=== PATIENT | female | born 1950 | race Caucasian/White ===

== ENCOUNTER 2017-04-19 08:31 | Day surgery (SDC) | payer BC ==
[2017-04-19] MEDS ORDERED: LIDOCAINE 1% 300 MG/30 ML SDV SC ONE (08:35)
--- NOTE | 2017-04-19 09:58 | PDHPUP ---
History & Physical Update H&P update statement: This history and physical update is based on an assessment of the patient which was completed after admission or registration (within 24 hours), but prior to the surgery/procedure. H&P update: H&P reviewed & patient examined, no change in patient's condition since H&P completed
--- NOTE | 2017-04-19 19:59 | CPIP ---
[f rep st] INVASIVE CARDIAC PROCEDURE DATE OF PROCEDURE: 04/19/2017 INDICATIONS: The patient is 67 years old. A LINQ had previously been implanted given her history of palpitations. Subsequently, she was found to have atrial fibrillation, which is being medically man aged now. She is referred for referred for removal of a [employer] LINQ. PROCEDURE: Removal of [employer] LINQ. TECHNIQUE: Following informed consent and in the fasting state, the patient was brought to the CVC. No sedation was used. Local anesthetic was infiltrated into the skin overlying the previously place d LINQ. Using a #15 blade, a 1 cm incision was made. Using blunt dissection, the LINQ was identified. The L INQ was then removed from the pocket. The pocket was irrigated and closed with 3 guillaume. COMPLICATIONS: None. DISPOSITION: The patient will be discharged home today. She will follow up next week for removal of the guillaume. /[id number]/MODL
== END 2017-04-19 10:00 | disposition home or self-care (01) ==
LOC: FCATH 08:31
PROVIDERS: ATTEND Internal Medicine Cardiovascular Disease
PROC: 0JPT02Z Removal of Monitoring Device from Trunk Subcutaneous Tissue and Fascia, Open Approach (ICD-10-PCS; principal; 2017-04-19)
DX: I48.0 Paroxysmal atrial fibrillation (principal); E78.5 Hyperlipidemia, unspecified

== ENCOUNTER 2018-05-02 14:11 | Emergency (ER) | payer BC ==
--- NOTE | 2018-05-02 15:31 | EDPHY ---
H & P Stated Complaint: Mechanical fall, injury to R elbow Time Seen by Provider: 05/02/18 15:22 HPI/ROS: CHIEF COMPLAINT: Right elbow pain HISTORY OF PRESENT ILLNESS: 68-year-old female presents with right elbow pain. She slipped and fell on icy pavement just prior to arrival. She landed on her right elbow. Immediate onset of moderate right elbow pain. The pain is mild to moderate and persistent. No other injuries. She did not hit her head. No headache or neck pain. ROS: No numbness, weakness, bleeding, syncopal episode, other injury. - Personal History Current Tetanus/Diphtheria Vaccine: Yes Current Tetanus Diphtheria and Acellular Pertussis (TDAP): Yes Tetanus Vaccine Date: 2006 - Medical/Surgical History Hx Asthma: No Hx Chronic Respiratory Disease: No Hx Diabetes: No Hx Cardiac Disease: No Hx Renal Disease: No Hx Cirrhosis: No Hx Alcoholism: No Hx HIV/AIDS: No Hx Splenectomy or Spleen Trauma: No Other PMH: bilat tka. hysterectomy, hypothyroid, ibs, gerd resolving, palpitations/ irreg heart beats not diagonsed, apt on 07/25 to get "inplanted monitor" - Social History Smoking Status: Never smoked - Physical Exam Exam: Alert and oriented, pleasant Extremities: Right elbow-tenderness over the distal humerus, range of motion, including supination/pronation with minimal pain Skin: Intact, no ecchymosis Neuro: Motor and sensory intact Vascular: Capillary refill brisk distally Constitutional: Initial Vital Signs Temperature (C) 36.6 C 05/02/18 14:14 Heart Rate 58 L 05/02/18 14:14 Respiratory Rate 18 05/02/18 14:14 Blood Pressure 133/85 H 05/02/18 14:14 O2 Sat (%) 96 05/02/18 14:14 O2 Delivery Mode Room Air Allergies/Adverse Reactions: No Known Allergies Allergy (Unverified 03/24/11 07:20) Home Medications: Medication Instructions Recorded Atorvastatin Calcium [Lipitor 20 20 mg PO DAILY 08/17/12 mg (*)] Hydrochlorothiazide [HCTZ (*)] 25 mg PO DAILY 08/17/12 Levothyroxine Sodium [Synthroid] 75 mcg PO DAILY06 08/17/12 celeCOXIB [Celebrex (*)] 200 mg PO BID PRN 08/17/12 Aspirin [Aspirin 81mg (OTC)] 81 mg PO DAILY #0 tab 06/11/14 Estradiol [Estradiol 1 MG (*)] 1 mg PO DAILY 06/11/14 Medical Decision Making - Diagnostics Imaging Results: Imaging Impressions Elbow X-Ray 05/02/18 14:47 Impression: Normal right elbow series. X-ray independently reviewed by me reveals no acute fracture. Imaging: I viewed and interpreted images myself ED Course/Re-evaluation: This patient presents with right elbow pain after a fall. X-ray is unremarkable. Results discussed with the patient. A sling was placed and follow-up instructions given. - Data Points Medications Given: Discontinued Medications Ibuprofen (Motrin) 600 mg PO EDNOW ONE Stop: 05/02/18 15:34 Last Admin: 05/02/18 15:34 Dose: 600 mg Departure - Departure Disposition: Home, Routine, Self-Care Clinical Impression: Contusion of right elbow Qualifiers: Encounter type: initial encounter Qualified Code(s): S50.01XA - Contusion of right elbow, initial encounter Condition: Good Instructions: Contusion in Adults (ED) Additional Instructions: Ibuprofen 600 mg 3 times daily while the pain persists. Use the sling while pain persists. If you continue to have pain in 10-14 days, follow up with your primary care physician. Referrals: Sana Liu MD [Primary Care Provider] - As per Instructions
[2018-05-02] MEDS ORDERED: IBUPROFEN 600 MG TAB PO ONE (15:33)
[2018-05-02 15:37] VITALS: BP 132/78
== END 2018-05-02 15:37 | disposition home or self-care (01) ==
DX: S50.01XA Contusion of right elbow, initial encounter (principal); E03.9 Hypothyroidism, unspecified; W00.0XXA Fall on same level due to ice and snow, initial encounter; Y92.9 Unspecified place or not applicable; Y99.9 Unspecified external cause status; Y93.9 Activity, unspecified; Z90.710 Acquired absence of both cervix and uterus